=== PATIENT | male | born 1965 | race Caucasian/White ===

== ENCOUNTER 2021-06-16 12:28 | Emergency (ER) | payer OTHER ==
[~2021-06-16 12:28] MED LIST: AMLODIPINE BESYL5 MG PO; ASPIRIN EC81 MG PO; COLCRYS0.6 MG PO; COREG 6.25MG6.25 MG PO; GABAPENTIN300 MG PO; LEXAPRO 10MG TA10 MG PO; NEURONTIN300 MG PO; PLAVIX75 MG PO; PRILOSEC20 MG PO; VOLTAREN **OUT75 MG PO
[2021-06-16 14:22] LABS: BASOPHIL 0.5 % (0-2); EOSINOPHIL 0.5 % (0-5); HCT 41.1 % (42.0-52.0); LYMPHOCYTE 12.3 % (15-48); MCH 31.3 pg (25.0-31.0); MCHC 34.1 g/dL (32.0-36.0); MCV 91.7 fL (78.0-100.0); MPV 9.6 fL (6.0-9.5); NEUTROPHIL 77.6 % (41-80); NRBC 0; PLT 208 K/uL (150-400); RBC 4.48 M/uL (4.70-6.00); RDW 12.7 % (11.5-14.0); WBC 9.2 K/uL (4.0-10.5)
[2021-06-16 14:44] LABS: BILIRUBIN - TOTAL 0.4 mg/dL (0.2-1.0); BUN/CREAT RATIO (CALC) 15.8 RATIO; CREATININE 1.46 mg/dL (0.67-1.17); GLOBULIN (CALCULATION) 3.7 g/dL; POTASSIUM 4.3 mmol/L (3.5-5.1); TOTAL PROTEIN 6.7 g/dL (6.4-8.2)
[2021-06-16 15:05] LABS: INR 1.07 (0.9-1.2); PROTHROMBIN TIME 13.3 SECONDS (11.8-13.4); PTT 27.5 SECONDS (24.4-34.7)
[2021-06-16] MEDS ORDERED: ELIQUIS5 MG PO (16:09)
== END 2021-06-16 16:13 | disposition home or self-care (01) ==
LOC: FER 12:28
PROVIDERS: Nurse Practitioner Family
DX: I82.432 Acute embolism and thrombosis of left popliteal vein (principal); I12.9 Hypertensive chronic kidney disease with stage 1 through stage 4 chronic kidney disease, or unspecified chronic kidney disease; N18.30 Chronic kidney disease, stage 3 unspecified; Z88.0 Allergy status to penicillin
CPT/HCPCS: 36415; 80053; 85025; 85610; 85730

== ENCOUNTER 2021-10-11 11:43 | Emergency (ER) | payer OTHER ==
[~2021-10-11 11:43] MED LIST changes: +ELIQUIS5 MG PO
[2021-10-11 12:55] LABS: BASOPHIL 0.4 % (0-2); EOSINOPHIL 0.5 % (0-5); HCT 41.8 % (42.0-52.0); HGB 14.2 g/dl (13.2-18.0); LYMPHOCYTE 9.1 % (15-48); MCH 31.3 pg (25.0-31.0); MCV 92.3 fL (78.0-100.0); MONOCYTE 6.5 % (0-12); MPV 9.9 fL (6.0-9.5); NEUTROPHIL 82.5 % (41-80); NRBC 0; PLT 261 K/uL (150-400); RBC 4.53 M/uL (4.70-6.00); WBC 9.7 K/uL (4.0-10.5)
[2021-10-11 13:27] LABS: BILIRUBIN - TOTAL 0.4 mg/dL (0.2-1.0); CREATININE 1.7 mg/dL (0.67-1.17); GLOBULIN (CALCULATION) 4.2 g/dL; POTASSIUM 3.6 mmol/L (3.5-5.1); TOTAL PROTEIN 7.2 g/dL (6.4-8.2)
[2021-10-11 14:20] LABS: INR 2.56 (0.9-1.2); PROTHROMBIN TIME 26.6 SECONDS (11.8-13.4)
[2021-10-11 14:27] LABS: CORONAVIRUS 2019 SARS-COV-2 POSITIVE (NEGATIVE)
[2021-10-11] MEDS ORDERED: VENTOLIN HFA IN18 GM INH (14:46)
[2021-10-11 17:10] LABS: INFLUENZA A NAA NEGATIVE (NEGATIVE)
== END 2021-10-11 15:21 | disposition home or self-care (01) ==
LOC: FER 11:43
PROVIDERS: Nurse Practitioner Family
DX: U07.1 COVID-19 (principal); Z88.0 Allergy status to penicillin
CPT/HCPCS: 36415; 71045; 71275; 80053; 83880; 84484; 85025; 85610; 93005; Q9967; U0002